=== PATIENT | male | born 1970 | race Caucasian/White ===

== ENCOUNTER 2022-07-29 14:13 | Emergency (ER) | payer OTHER ==
[2022-07-29 15:51] LABS: BASOPHIL 0.5 % (0-2); EOSINOPHIL 2.8 % (0-5); HCT 41.4 % (42.0-52.0); HGB 14.7 g/dl (13.2-18.0); LYMPHOCYTE 38.9 % (15-48); MCH 31.3 pg (25.0-31.0); MCHC 35.5 g/dL (32.0-36.0); MCV 88.1 fL (78.0-100.0); MONOCYTE 7.9 % (0-12); MPV 9.3 fL (6.0-9.5); NEUTROPHIL 49.7 % (41-80); NRBC 0; PLT 246 K/uL (150-400); RDW 11.9 % (11.5-14.0); WBC 8.8 K/uL (4.0-10.5)
[2022-07-29 16:02] LABS: INR 0.9 (0.9-1.2); PROTHROMBIN TIME 11.9 SECONDS (11.9-13.9)
[2022-07-29 16:04] LABS: D-DIMER 0.29 ug/mLFEU (0.00-0.41)
[2022-07-29 16:36] LABS: ALBUMIN 3.7 g/dL (3.4-5.0); BILIRUBIN - TOTAL 0.2 mg/dL (0.2-1.0); BUN/CREAT RATIO (CALC) 18.8 RATIO; CREATININE 0.96 mg/dL (0.67-1.17); GLOBULIN (CALCULATION) 3.2 g/dL; TOTAL PROTEIN 6.9 g/dL (6.4-8.2)
== END 2022-07-29 17:15 | disposition home or self-care (01) ==
LOC: FER 14:13
PROVIDERS: Emergency Medicine
DX: R07.89 Other chest pain (principal); I10 Essential (primary) hypertension; Z28.310 Unvaccinated for COVID-19
CPT/HCPCS: 36415; 71046; 80053; 83690; 84484; 85025; 85379; 85610; 85730; 93005; G0480